=== PATIENT | male | born 1965 | race Caucasian/White ===

== ENCOUNTER 2017-02-15 15:04 | Emergency (ER) | payer BC ==
[2017-02-15 15:56] VITALS: BP 135/86
--- NOTE | 2017-02-15 16:04 | UC ---
FLU HPI - HPI Summary HPI Summary: Pt presents with c/o generalized malaise, nasal congestion, cough, sinus pressure, "ear fullness" bilateral and sore throat X 4 days. Denies fever, c/o intermittent chills. Pt has been taking OTC cold medication with little to no improvement. Pt recently traveled from [place], [place] to here over the last two days. - History of Current Complaint Chief Complaint: UCRespiratory Stated Complaint: SORE THROAT ACHY Time Seen by Provider: 02/15/17 15:48 Hx Obtained From: Patient Onset/Duration: Gradual Onset, Lasting Days, Worse Since - onset Severity Currently: Mild Severity Initially: Mild Associated Signs & Symptoms: Positive: Myalgia, Cough, Sore Throat, Nasal Congestion - Allergy/Home Medications Allergies/Adverse Reactions: Allergies Allergy/AdvReac Type Severity Reaction Status Date / Time No Known Allergies Allergy Verified 02/15/17 15:56 Home Medications: Home Medications Albuterol HFA INHALER* [Ventolin HFA Inhaler*] 2 puff INH Q4H PRN 02/15/17 [ History Confirmed 02/15/17] Dextromethorphan-Guaifenesin [Mucinex Dm Maximum Streng 60-1200 mg] 1 tab PO Q6H PRN 02/15/17 [History Confirmed 02/15/17] Fluticasone NASAL SPRAY 50MCG* [Flonase NASAL SPRAY 50MCG*] 2 spray LEFT NARE DAILY 02/15/17 [History Confirmed 02/15/17] Ibuprofen TAB* [Motrin TAB* 800 MG] 800 mg PO Q6H 02/15/17 [History Confirmed ] PMH/Surg Hx/FS Hx/Imm Hx Previously Healthy: Yes - Surgical History Surgical History: None - Family History Known Family History: Positive: Cardiac Disease - Social History Occupation: Employed Full-time Lives: With Family Alcohol Use: Daily Substance Use Type: None Smoking Status (MU): Never Smoked Tobacco Have You Smoked in the Last Year: No Review of Systems Constitutional: Chills, Other - malaise Skin: Negative Eyes: Negative ENT: Sore Throat, Sinus Congestion, Sinus Pain/Tenderness, Other - PND Respiratory: Cough Cardiovascular: Negative Gastrointestinal: Negative Genitourinary: Negative Motor: Negative Neurovascular: Negative Musculoskeletal: Myalgia - generalized malaise Neurological: Negative Psychological: Negative All Other Systems Reviewed And Are Negative: Yes Physical Exam Triage Information Reviewed: Yes Appearance: Ill-Appearing Vital Signs: Initial Vital Signs Temp 97.9 F 02/15/17 15:52 Pulse 69 02/15/17 15:52 Resp 14 02/15/17 15:52 BP 135/86 02/15/17 15:52 Pulse Ox 98 02/15/17 15:52 Vital Signs Reviewed: Yes Eye Exam: Normal ENT Exam: Other ENT: Positive: Nasal congestion, TM bulging - bilateral, Tonsillar swelling Dental Exam: Normal Neck exam: Other Neck: Positive: Tenderness @ - submandibular, Enlarged Nodes @ - submandibular, tender to palpation Respiratory Exam: Normal Cardiovascular Exam: Normal Musculoskeletal Exam: Normal Neurological Exam: Normal Psychological Exam: Normal Skin Exam: Normal Flu Course/Dx - Course Course Of Treatment: I discussed with the pt results of the rapid strep. Pt verbalized understanding and agreed to plan of care. - Differential Dx/Diagnosis Differential Diagnosis/HQI/PQRI: Influenza, Upper Respiratory Infection, Other - sinusitis Provider Diagnoses: sinusitis Discharge - Discharge Plan Condition: Stable Disposition: HOME Patient Education Materials: Sinusitis (ED)
== END 2017-02-15 16:37 | disposition home or self-care (01) ==
LOC: UCCORT 15:04
DX: J32.9 Chronic sinusitis, unspecified (principal); M79.1 Myalgia
CPT/HCPCS: 87651; 99202; G0463